=== PATIENT | female | born 1990 | race African-American/Black ===

== ENCOUNTER 2022-01-16 15:06 | Outpatient (CLI) | payer OTHER, SELFPAY | END 2022-01-16 15:07 | disposition home or self-care (01) | LOC: ANHLAB 15:08 | PROVIDERS: Visit Provider Obstetrics & Gynecology | DX: O03.9 Complete or unspecified spontaneous abortion without complication (principal); Z3A.00 Weeks of gestation of pregnancy not specified | CPT/HCPCS: 36415; 84702 ==

== ENCOUNTER 2022-01-18 10:23 | Outpatient (CLI) | payer OTHER, SELFPAY ==
[2022-01-18 11:35] LABS: Beta HCG Quantitative 389.18 mIU/ML
== END 2022-01-18 10:24 | disposition home or self-care (01) ==
PROVIDERS: Visit Provider Obstetrics & Gynecology
DX: O03.9 Complete or unspecified spontaneous abortion without complication (principal); Z3A.00 Weeks of gestation of pregnancy not specified
CPT/HCPCS: 36415; 84702

== ENCOUNTER 2022-04-16 11:16 | Outpatient (CLI) | payer OTHER, SELFPAY | END 2022-04-16 11:17 | disposition home or self-care (01) | LOC: ANHLAB 11:17 | PROVIDERS: Visit Provider Obstetrics & Gynecology | DX: N92.6 Irregular menstruation, unspecified (principal) | CPT/HCPCS: 36415; 84702 ==

== ENCOUNTER 2022-04-18 10:29 | Outpatient (CLI) | payer OTHER, SELFPAY | END 2022-04-18 10:30 | disposition home or self-care (01) | PROVIDERS: Visit Provider Obstetrics & Gynecology | DX: N92.6 Irregular menstruation, unspecified (principal) | CPT/HCPCS: 36415; 84702 ==

== ENCOUNTER 2022-05-17 11:05 | Outpatient (CLI) | payer OTHER, SELFPAY ==
[2022-05-17 11:40] LABS: Basophils Absolute Auto 0.1 K/mm3 (0.0-0.1); Basophils Percent Auto 0.5 % (0.2-1.2); Eosinophils Absolute Auto 0.1 K/mm3 (0-0.3); Eosinophils Percent Auto 0.5 % (0-4.4); Hematocrit 33.5 % (37.0-47.0); Hemoglobin 10.8 g/dL (12.0-15.0); Immature Granulocyte Absolute 0.04 K/mm3 (0.00-0.031); Immature Granulocyte Percent A 0.4 % (0-0.5); Lymphocytes Absolute Auto 1.33 K/mm3 (0.9-3.2); Lymphocytes Percent Auto 13.3 % (18.3-44.2); Mean Corpuscular HGB Conc 32.2 g/dl (32-36); Mean Corpuscular Hemoglobin 29.5 pg (26-34); Mean Corpuscular Volume 91.5 fl (80-100); Mean Platelet Volume 11.1 fl (7.4-10.4); Monocytes Absolute Auto 0.6 K/mm3 (0.1-0.6); Neutrophils Absolute Auto 7.9 K/mm3 (1.3-6.7); Neutrophils Percent Auto 79.3 % (45.5-73.1); Platelet Count Result 238 k/mm3 (150-375); Red Blood Count 3.66 M/mm3 (4.2-5.4); Red Cell Distribution Width 12.7 % (11.5-14.5)
[2022-05-17 12:34] LABS: HIV 1/2 Ab P24 Ag Result Negative (Negative)
[2022-05-17 12:58] LABS: Hepatitis B Surface Antigen Negative (Negative); Rubella IgG Antibody 22.5 IU/ML
[2022-05-20 12:13] LABS: Rapid Plasma Reagin Non-Reactive (NonReactive)
[2022-05-30 20:23] LABS: SMA 2.0 RISK VARIANT NOT DETECTED
[2022-05-31 13:55] LABS: SMA Results Received Yes
== END 2022-05-17 11:06 | disposition home or self-care (01) ==
LOC: ANHLAB 11:07
PROVIDERS: Visit Provider Student in an Organized Health Care Education/Training Program
DX: N94.89 Other specified conditions associated with female genital organs and menstrual cycle (principal)
CPT/HCPCS: 36415; 81329; 84702; 85025; 86592; 86644; 86703; 86747; 86762; 86787; 86850; 87340; G0432

== ENCOUNTER → 2022-05-20 11:30 | Outpatient (CLI) | payer OTHER, SELFPAY ==
--- NOTE | ~2022-05-20 | US_ITS ---
EXAMINATION: US OB <= 14 weeks fetus DATE: 05/20/2022 11:51 INDICATION: Establish dating of . Encounter for supervision of normal patency during . TECHNIQUE: Real-time pelvic ultrasound utilizing both a transvaginal and transabdominal probe was pe rformed. The interpreting radiologist was not present for the study. COMPARISON: None. FINDINGS: The uterus measures 11.2 x 7.9 x 7.8 cm. There is an intrauterine gestational sac. A yolk sac and fe hodan pole are identified. The crown rump length measures 2.7 cm, which correlates with an estimated ge stational age of 9 weeks and 3 days. heart motion is identified measuring 165 beats per minute (bpm) by M-mode Doppler. The right ovary is not visualized The left ovary measures 2.9 x 1.6 x 3.4 cm. There is no free fluid in the pelvis. IMPRESSION: 1. Single living fetus with heart rate of 165 bpm. 2. Gestational age by ultrasound of 9 weeks 3 day(s) +/- 6 day(s) with ultrasound estimated date of delivery (ANA) of 12/30/2022. Reviewed, dictated and finalized at location A. AGING INSPECTOR IMPRESSION: 1. Single living fetus with heart rate of 165 bpm. 2. Gestational age by ultrasound of 9 weeks 3 day(s) +/- 6 day(s) with ultraso und estimated date of delivery (ANA) of 12/30/2022.
== END ==
PROVIDERS: PCP Obstetrics & Gynecology; Visit Provider Obstetrics & Gynecology
DX: Z34.91 Encounter for supervision of normal pregnancy, unspecified, first trimester (principal); Z3A.09 9 weeks gestation of pregnancy
CPT/HCPCS: 76801

== ENCOUNTER 2022-07-11 11:28 | Outpatient (CLI) | payer OTHER, SELFPAY | END 2022-07-11 11:29 | disposition home or self-care (01) | LOC: ANHLAB 11:31 | PROVIDERS: PCP Obstetrics & Gynecology; Visit Provider Student in an Organized Health Care Education/Training Program | DX: N91.2 Amenorrhea, unspecified (principal); N94.89 Other specified conditions associated with female genital organs and menstrual cycle | CPT/HCPCS: 36415; 86900; 86901 ==

== ENCOUNTER 2022-08-05 10:20 | Outpatient (CLI) | payer OTHER, SELFPAY ==
--- NOTE | ~2022-08-05 | US_ITS ---
EXAMINATION: US OB /maternal detail DATE: 08/05/2022 11:42 INDICATION: Second trimester anatomic survey TECHNIQUE: Multiple obstetric sonographic images performed. FINDINGS: There is a single living fetus in breech presentation. The placenta is anterior and low-lying with c audal margin 4.0 cm from the internal cervical os. Cervical length measures approximately 6 cm which is normal. Amniotic fluid volume is subjectively normal. heart rate of 163 beats per minute. The following anatomy was identified as normal: Ventricles, choroid plexus, falx and cava septum pellucidum Cerebellum and cisterna magna Nuchal fold Spine Heart Diaphragm Stomach Kidneys Bladder 3 vessel cord and cord insertion Bilateral upper and lower extremities including hands and feet The following biometric data were obtained: BPD: 4.9 cm -> 20 weeks 5 days Head circumference: 17.9 cm -> 20 weeks 2 days Abdominal circumference: 15.6 cm -> 20 weeks 5 days Femur length: 3.3 cm -> 20 weeks 2 days These measurements are concordant. Head circumference to abdominal circumference ratio: 1.15 (normal range 1.07-1.25). Estimated weight: 360 g (+/-) 54 g. or 13 oz. (+/-) 2 oz. IMPRESSION: 1. Single living fetus with breech presentation with heart rate of 163 bpm. 2. Biometric data concordant within 1 day of the estimated gestational age by ultrasound of 20 weeks 3 day(s) based upon prior ultrasound performed on 05/20/2022 and within 2 days of the estimated gesta tional age of 20 weeks and 6 days based upon TECHNICIAN BIOLOGICAL HEALTH in office evaluation as reported by the patient d id estimated weight is 28th percentile by Hadlock criteria when 606/23 as provided by the [facility] nt is used as the ANA. Please correlate with clinical information or earlier ultrasounds for most acc urate ANA. 3. Normal anatomic survey. Reviewed, dictated and finalized at location B. TENDER PAPER MACHINE IMPRESSION: 1. Single living fetus with breech presentation with heart rate of 163 b pm. 2. Biometric data concordant within 1 day of the estimated gestational age by u ltrasound of 20 weeks 3 day(s) based upon prior ultrasound performed on 022 and within 2 days of the estimated gestational age of 20 weeks and 6 days b ased upon TECHNICIAN BIOLOGICAL HEALTH in office evaluation as reported by the patient did estimated weight is 28th percentile by Hadlock criteria when 606/23 as provided by the patient is used as the ANA. Please correlate with clinical information or e arlier ultrasounds for most accurate ANA. 3. Normal anatomic survey.
== END 2022-08-05 10:21 | disposition home or self-care (01) ==
PROVIDERS: Visit Provider Student in an Organized Health Care Education/Training Program
DX: Z34.90 Encounter for supervision of normal pregnancy, unspecified, unspecified trimester (principal); Z3A.00 Weeks of gestation of pregnancy not specified
CPT/HCPCS: 76805

== ENCOUNTER 2022-09-01 16:49 | Outpatient (CLI) | payer OTHER, SELFPAY ==
[2022-09-01 17:03] VITALS: BP 106/69; PULSE 94
[2022-09-01 17:29] LABS: Appearance Urine Clear (Clear); Bilirubin Urine Negative (Negative); Blood Urine Negative (Negative); Color Urine Yellow (Yellow); Glucose Urine UA Negative (Negative); Ketones Urine Negative (Negative); Leukocyte Esterase Ur Negative LEU/UL (Negative); Nitrate Urine Negative (Negative); Protein Urine Negative (Negative); Urobilinogen Urine 0.2 mg/dL (<2.0)
[2022-09-01 17:37] LABS: Mucus Urine Rare /lpf; RBC Urine 0-2 /hpf (0-2); Squamous Epithelial Cell Urine Rare /hpf (Few); WBC Urine 0-3 /hpf
[2022-09-01 17:46] LABS: Add Urine Microscopic? NO
--- NOTE | 2022-09-01 17:50 | PC.NURSE ---
1741: RN called NICOL Hector to report pt's complaints of contractions every 10-15 min, FHT of Category 1, and no contraction noted per toco or patient. Rn notified CNM that patient has no major health history, no problems with this , and no history of labor. RN also notified CNM of patient's urine culture results. Order to discharge patient home.
--- NOTE | 2022-09-02 09:10 | P.PNOB_ITS ---
OB - Triage/Final Diagnosis Visit Information Reason for evaluation: threatened labor Comments/Additional reasons for admission: I have assessed the risk for this patient, Vaishali Us, and determined that she would benefit from observation care. Evaluation Laboratory results: Laboratory Tests 09/01/22 17:16 Urine Color Yellow Urine Appearance Clear Urine pH 7.0 Ur Specific [place] 1.010 Urine Protein Negative Urine Glucose (UA) Negative Urine Ketones Negative Ur Blood (Man) Negative Urine Nitrate Negative Urine Bilirubin Negative Urine Urobilinogen 0.2 Leukocyte Esterase Rfl Negative Urine RBC 0-2 Urine WBC 0-3 Ur Squamous Epith Cells Rare Urine Mucus Rare Vital signs: Vital Signs - 24 hr 09/01/22 17:03 Pulse Rate 94 Blood Pressure 106/69
== END 2022-09-01 17:50 | disposition home or self-care (01) ==
LOC: ANHOBOP 16:54 → ANHOBPP 16:56
PROVIDERS: Advanced Practice Midwife; Visit Provider Student in an Organized Health Care Education/Training Program
DX: O20.0 Threatened abortion (principal); Z3A.00 Weeks of gestation of pregnancy not specified
CPT/HCPCS: 81003; 99199

== ENCOUNTER 2022-09-26 12:17 | Outpatient (CLI) | payer OTHER, SELFPAY ==
[2022-09-26 14:45] LABS: Hematocrit 31.3 % (37.0-47.0); Hemoglobin 9.9 g/dL (12.0-15.0); Mean Corpuscular HGB Conc 31.6 g/dl (32-36); Mean Corpuscular Hemoglobin 29.3 pg (26-34); Mean Corpuscular Volume 92.6 fl (80-100); Mean Platelet Volume 11.8 fl (7.4-10.4); Platelet Count Result 219 k/mm3 (150-375); Red Blood Count 3.38 M/mm3 (4.2-5.4); Red Cell Distribution Width 13.5 % (11.5-14.5); White Blood Count 11.8 K/mm3 (4.5-10.0)
[2022-09-26 14:54] LABS: Glucose 1 Hour PP 50gm Dose 106 mg/dL
[2022-09-26 15:35] LABS: HIV 1/2 Ab P24 Ag Result Negative (Negative)
== END 2022-09-26 12:18 | disposition home or self-care (01) ==
LOC: ANHLAB 12:19
PROVIDERS: Visit Provider Student in an Organized Health Care Education/Training Program
DX: Z34.90 Encounter for supervision of normal pregnancy, unspecified, unspecified trimester (principal); Z3A.00 Weeks of gestation of pregnancy not specified
CPT/HCPCS: 36415; 82947; 85027; 86703; G0432

== ENCOUNTER 2022-09-28 17:33 | Observation (INO) | payer OTHER, SELFPAY ==
[2022-09-28] VITALS (29 sets, daily range): BP systolic 100–111; BP diastolic 62–68; PULSE 88–112; O2SAT 97–100; BMI 20.7
[2022-09-28 18:38] LABS: Basophils Percent Auto 0.3 % (0.2-1.2); Eosinophils Absolute Auto 0.1 K/mm3 (0-0.3); Eosinophils Percent Auto 0.8 % (0-4.4); Hematocrit 29.3 % (37.0-47.0); Hemoglobin 9.5 g/dL (12.0-15.0); Immature Granulocyte Absolute 0.21 K/mm3 (0.00-0.031); Immature Granulocyte Percent A 1.8 % (0-0.5); Lymphocytes Absolute Auto 1.96 K/mm3 (0.9-3.2); Lymphocytes Percent Auto 16.8 % (18.3-44.2); Mean Corpuscular HGB Conc 32.4 g/dl (32-36); Mean Corpuscular Hemoglobin 29.7 pg (26-34); Mean Corpuscular Volume 91.6 fl (80-100); Mean Platelet Volume 11.2 fl (7.4-10.4); Monocytes Absolute Auto 0.9 K/mm3 (0.1-0.6); Monocytes Percent Auto 7.4 % (2.6-8.5); Neutrophils Absolute Auto 8.5 K/mm3 (1.3-6.7); Neutrophils Percent Auto 72.9 % (45.5-73.1); Platelet Count Result 215 k/mm3 (150-375); Red Cell Distribution Width 13.4 % (11.5-14.5); White Blood Count 11.7 K/mm3 (4.5-10.0)
--- NOTE | 2022-09-28 20:12 | PC.NURSE ---
1924 BUDDY CALLED ABOUT PT ARRIVAL AND CURRENT PT STATUS. LAB REVIEWED. MATERNAL AND STATUS REPORTED. DISCHARGE ORDERS RECEIVED.
--- NOTE | 2022-09-30 19:55 | P.PNOB_ITS ---
OB - Triage/Final Diagnosis Visit Information Reason for evaluation: other (Dizziness. ) Comments/Additional reasons for admission: I have assessed the risk for this patient, Vaishali Us, and determined that she would benefit from observation care. Pt had improvement of symptoms. Plan to increase PO iron and fluid intake. To f/up with primary OBGYN. Evaluation Laboratory results: Laboratory Tests 09/28/22 18:31 WBC 11.7 H RBC 3.20 L Hgb 9.5 L Hct 29.3 L MCV 91.6 MCH 29.7 MCHC 32.4 RDW 13.4 Plt Count 215 MPV 11.2 H Immature Gran % (Auto) 1.8 H Neut % (Auto) 72.9 Lymph % (Auto) 16.8 L [place] % (Auto) 7.4 Eos % (Auto) 0.8 Baso % (Auto) 0.3 Lymph # (Auto) 1.96 [place] # (Auto) 0.9 H Eos # (Auto) 0.1 Baso # (Auto) 0.0 Abs Immat Gran (auto) 0.21 H Absolute Neuts (auto) 8.5 H Absolute Nucleated RBC 0.0 Nucleated RBC % 0.0
== END 2022-09-28 19:41 | disposition home or self-care (01) ==
LOC: ANHOBOP 17:47 → ANHOBPP 17:58
PROVIDERS: Admitting Provider Advanced Practice Midwife; Visit Provider Advanced Practice Midwife
DX: O26.893 Other specified pregnancy related conditions, third trimester (principal); R42 Dizziness and giddiness; Z3A.28 28 weeks gestation of pregnancy
CPT/HCPCS: 36415; 59025; 85025; G0378; G0379

== ENCOUNTER 2022-11-29 13:16 | Observation (INO) | payer OTHER, SELFPAY ==
[2022-11-29] VITALS (15 sets, daily range): BP systolic 99–106; BP diastolic 60–68; PULSE 87–167; RESP 12; O2SAT 93–100; BMI 24.8
[2022-11-29 14:34] LABS: Appearance Urine Clear (Clear); Bacteria Urine None Seen /hpf; Bilirubin Urine Negative (Negative); Blood Urine Negative (Negative); Color Urine Yellow (Yellow); Glucose Urine UA Negative (Negative); Ketones Urine Negative (Negative); Leukocyte Esterase Ur Trace LEU/UL (Negative); Nitrate Urine Negative (Negative); Non Pathogenic Casts 0-2; Protein Urine Negative (Negative); RBC Urine 0-2 /hpf (0-2); Squamous Epithelial Cell Urine None seen /hpf (Few); WBC Urine 0-5 /hpf; pH Urine 6.5 (5.0-9.0)
[2022-11-29 14:35] LABS: Add Urine Microscopic? YES
--- NOTE | 2022-11-29 14:43 | PC.NURSE ---
1443: RN phoned OB Dr. Strange. RN reported to OB maternal status, maternal complaint of vaginal pressure, contraction pattern, FHT, and urine results. Orders to discharge patient home with orders to keep her next appointment with OB.
--- NOTE | 2022-11-29 15:03 | OBADM ---
This patient, Vaishali Us, admitted to the OB room Labor/Delivery/Recovery 106 for observation. Patient/family oriented to hospital policies and general routines including ID bracelet, bed and alarms, visiting hours, pain management, procedures, bathroom and other care routines, personal items, smoking policy, room service/diet, and visiting hours. Patient/Family are encouraged to report perceived risks to care and to ask questions if they do not understand what they are told or what they should do.
--- NOTE | 2022-12-03 08:08 | PM.OBTRLD ---
OB - Triage/Final Diagnosis Visit Information Comments/Additional reasons for admission: I have assessed the risk for this patient, Vaishali Us, and determined that she would benefit from observation care. Evaluation Laboratory results: Laboratory Tests 11/29/22 14:26 Urine Color Yellow Urine Appearance Clear Urine pH 6.5 Ur Specific [place] 1.020 Urine Protein Negative Urine Glucose (UA) Negative Urine Ketones Negative Ur Blood (Man) Negative Urine Nitrate Negative Urine Bilirubin Negative Urine Urobilinogen 1.0 Leukocyte Esterase Rfl Trace H Urine RBC 0-2 Urine WBC 0-5 Ur Squamous Epith Cells None seen Urine Bacteria None seen Urine Casts 0-2 Final Diagnosis (1) False labor: Code(s): O47.9 - False labor, unspecified Status: Acute
== END 2022-11-29 15:28 | disposition home or self-care (01) ==
LOC: ANHLDR 13:43
PROVIDERS: Admitting Provider Obstetrics & Gynecology; Visit Provider Obstetrics & Gynecology
DX: O47.9 False labor, unspecified (principal); Z3A.00 Weeks of gestation of pregnancy not specified
CPT/HCPCS: 81001; G0378; G0379

== ENCOUNTER 2022-12-17 04:57 | Inpatient (IN) | payer OTHER, SELFPAY ==
[2022-12-17] VITALS (43 sets, daily range): BP systolic 90–115; BP diastolic 46–76; PULSE 81–106; RESP 16–18; TEMP 36.2–36.6; O2SAT 100; BMI 25.1
--- NOTE | 2022-12-17 05:18 | LDADM ---
This patient, Vaishali Us, was admitted to Labor/Delivery/Recovery 104 on 12/17/22 at 04:57. Plans for labor, pain management and were discussed with patient. Patient/family oriented to hospital policies and general routines including ID bracelet, bed and alarms, visiting hours, pain management, procedures, bathroom and other care routines, personal items, smoking policy, room service/diet and guest tray routines, security routines, and visiting hours. Patient/Family are encouraged to report perceived risks to care and to ask questions if they do not understand what they are told or what they should do. See OBIX for further documentation.
[2022-12-17 06:11] LABS: Basophils Percent Auto 0.2 % (0.2-1.2); Eosinophils Absolute Auto 0.1 K/mm3 (0-0.3); Eosinophils Percent Auto 0.5 % (0-4.4); Hematocrit 30.7 % (37.0-47.0); Hemoglobin 9.6 g/dL (12.0-15.0); Immature Granulocyte Absolute 0.15 K/mm3 (0.00-0.031); Immature Granulocyte Percent A 1.2 % (0-0.5); Lymphocytes Absolute Auto 1.75 K/mm3 (0.9-3.2); Lymphocytes Percent Auto 14.5 % (18.3-44.2); Mean Corpuscular HGB Conc 31.3 g/dl (32-36); Mean Corpuscular Volume 86.2 fl (80-100); Mean Platelet Volume 11.2 fl (7.4-10.4); Monocytes Absolute Auto 0.8 K/mm3 (0.1-0.6); Monocytes Percent Auto 6.4 % (2.6-8.5); Neutrophils Absolute Auto 9.3 K/mm3 (1.3-6.7); Neutrophils Percent Auto 77.2 % (45.5-73.1); Platelet Count Result 254 k/mm3 (150-375); Red Blood Count 3.56 M/mm3 (4.2-5.4); Red Cell Distribution Width 15.1 % (11.5-14.5); White Blood Count 12.1 K/mm3 (4.5-10.0)
[2022-12-17] MEDS: LACTATED RINGERS 1,000 ML 125 ML IV CONT (06:19)
[2022-12-17] MEDS: OXYTOCIN 30 UNITS/NS 500 ML 30 UNITS/500 ML BAG IV CONT (06:20)
--- NOTE | 2022-12-17 07:11 | PM.IMHP ---
H&P: HPI History of Present Illness Date/Time: 12/17/22 07:11 Chief Complaint: elective IOL Narrative: Vaishali is a 32yo @ 39.4wks who presents for elective IOL. She reports good movements. No VB or LOF. She has been having contractions. Her is complicated by: - Anemia; hgb 9.6 PMFSH Past Medical History Medical History Suppression of menses Vaginal discharge Venereal disease Surgical History Surgical History History of colposcopy (~02/02/14) Lgsil+hpv History of gynecological procedure mirena iud insertion - 11/14/2011 mirena iud removal 07/20/2014 Mirena iud insertion 10/21/2016 Mirena iud removal 08/25/2017 Mirena Iud insertion 09/28/2018 Social History Social History Smoking status: Never smoker Alcohol intake: never Substance use: never Lack of Transportation: No Lack of Food: Never True Current Housing: I Have Housing Concerned About Future Housing: No Difficulty Paying Gas/Electric Bills: No Difficulty Paying for Meds: No Currently Unemployed: No Education: High School Diploma/GED Difficulty w/ Childcare or Family Care: No Occupation/Education: occupation 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 Spiritual care concerns: No Meds Home Medications and Allergies Home Medications Medication Instructions Recorded Confirmed Type ferrous sulfate 325 mg (65 mg 325 mg PO DAILY #30 tabs 09/27/22 12/17/22 Rx iron) tablet (FeroSul) Allergies Allergy/AdvReac Type Severity Reaction Status Date / Time No Known Allergies Allergy Unknown Verified 12/11/22 11:22 Vital Signs Vital Signs - 24 hr 12/17/22 05:18 12/17/22 06:22 12/17/22 06:31 Temperature Pulse Rate 89 85 Blood Pressure 102/65 107/66 Oxygen Delivery Room Air 12/17/22 06:46 12/17/22 06:29 12/17/22 07:01 Temperature 97.2 F L Pulse Rate 87 84 Blood Pressure 105/69 106/69 Oxygen Delivery Exam Const: General: cooperative, healthy appearing, comfortable and no acute distress Resp: Effort & Inspection: normal respiratory effort Cardio: Rate: regular rate GI: GI Palp: No abdominal tenderness : Other: FHT's: 150's/ mod joe/ + accels/ no decels - cat 1 toco: ctx's q2-3min Cervix: 4/50/-4 Membranes: intact Presentation: cephalic Skin: General skin exam: normal color Neuro: General: patient oriented x3 Extrem: General: normal to inspection Psych: Appearance: grossly normal Affect: normal affect Attitude: cooperative H&P: Results Labs Labs: Short CBC 12/17/22 Range/Units 05:27 WBC 12.1 H (4.5-10.0) K/mm3 Hgb 9.6 L (12.0-15.0) g/dL Hct 30.7 L (37.0-47.0) % Plt Count 254 (150-375) k/mm3 Assessment and Plan Assessment and plan (1) Encounter for elective induction of labor: Code(s): Z34.90 - Encounter for supervision of normal , unspecified, unspecified trimester Status: Acute Plan - Pitocin per protocol - Will plan for AROM, when head is at a lower station - Continuous monitoring; currently reassuring - GBS negative - Anesthesia consult PRN pain
--- NOTE | 2022-12-17 07:24 | WPDHPUPDATE1 ---
History and Physical Update Update Date/Time: 12/17/22 07:24 History and Physical has been reviewed, including an updated exam of the patient. There are NO changes in the patient's condition. Risks, benefits, and alternatives have been discussed and questions answered. Patient agrees to proceed with procedure.
--- NOTE | 2022-12-17 09:36 | WPDANESEPPF ---
Anes - Initial Pre Proc Eval Procedure: LAbor epidural Date/Time: 12/17/22 09:36 Surgeon: Brooklyn Strange MD Pre Op Diagnosis: Abdominal pain with contractions Pre Op Diagnosis: IOL Patient Data Age: 32 Gender: F Height: 1.73 m Weight: 75 kg Last Vital Signs Temp 97.2 F L 12/17/22 06:29 Pulse 92 12/17/22 09:31 BP 91/56 L 12/17/22 09:31 O2 Del Method Room Air 12/17/22 05:18 Allergies Allergy/AdvReac Type Severity Reaction Status Date / Time No Known Allergies Allergy Unknown Verified 12/11/22 11:22 Home Medications Medication Instructions Recorded Confirmed Type ferrous sulfate 325 mg (65 mg 325 mg PO DAILY #30 tabs 09/27/22 12/17/22 Rx iron) tablet (FeroSul) Laboratory Tests 12/17/22 05:27 WBC 12.1 H K/mm3 (4.5-10.0) RBC 3.56 L M/mm3 (4.2-5.4) Hgb 9.6 L g/dL (12.0-15.0) Hct 30.7 L % (37.0-47.0) MCV 86.2 fl (80-100) MCH 27.0 pg (26-34) MCHC 31.3 L g/dl (32-36) RDW 15.1 H % (11.5-14.5) Plt Count 254 k/mm3 (150-375) MPV 11.2 H fl (7.4-10.4) Immature Gran % (Auto) 1.2 H % (0-0.5) Neut % (Auto) 77.2 H % (45.5-73.1) Lymph % (Auto) 14.5 L % (18.3-44.2) [place] % (Auto) 6.4 % (2.6-8.5) Eos % (Auto) 0.5 % (0-4.4) Baso % (Auto) 0.2 % (0.2-1.2) Lymph # (Auto) 1.75 K/mm3 (0.9-3.2) [place] # (Auto) 0.8 H K/mm3 (0.1-0.6) Eos # (Auto) 0.1 K/mm3 (0-0.3) Baso # (Auto) 0.0 K/mm3 (0.0-0.1) Abs Immat Gran (auto) 0.15 H K/mm3 (0.00-0.031) Absolute Neuts (auto) 9.3 H K/mm3 (1.3-6.7) Absolute Nucleated RBC 0.0 K/mm3 (0.0-0.012) Nucleated RBC % 0.0 % (0.0-0.2) RPR Pending Blood Type B Positive Antibody Screen Negative : gestational age HCG: positive Patient hx anesthesia problems: none Family hx anesthesia problems: none Results Review: All pre-operative results and documents have been reviewed as part of the pre-operative evaluation. [facility] Past Medical History Medical History Overweight (BMI 25.0-29.9) STD (female) Suppression of menses Vaginal discharge Venereal disease Surgical History Surgical History History of colposcopy (~02/02/14) Lgsil+hpv History of gynecological procedure mirena iud insertion - 11/14/2011 mirena iud removal 07/20/2014 Mirena iud insertion 10/21/2016 Mirena iud removal 08/25/2017 Mirena Iud insertion 09/28/2018 Social History Social History Smoking status: Never smoker Alcohol intake: never Substance use: never Lack of Transportation: No Lack of Food: Never True Current Housing: I Have Housing Concerned About Future Housing: No Difficulty Paying Gas/Electric Bills: No Difficulty Paying for Meds: No Currently Unemployed: No Education: High School Diploma/GED Difficulty w/ Childcare or Family Care: No Occupation/Education: occupation 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 Informed Consent: The patient's anesthetic plan and its attendant risks and benefits were discussed with the patient/family/POA. Questions were solicited and answers provided to the satisfaction of the patient/family/POA.
[2022-12-17] MEDS: fentaNYL CITRATE INJ (*CRX) 100 MCG/2 ML VIAL 50 MCG IV PUSH ×3 (10:36→13:04)
[2022-12-17 11:29] LABS: Rapid Plasma Reagin Non-Reactive (NonReactive)
--- NOTE | 2022-12-17 11:29 | PM.OBPNLAB ---
Pain Control Date/time seen: 12/17/22 11:29 Pain control: narcotic analgesia Pelvic Exam Dilation (cm): 6 Effacement (%): 80 station: -2 Amniotic membrane status: Ruptured (AROM, clear 1125) Contractions Monitor mode: External Contraction frequency: 3 (-4) Contraction pattern: Regular Status status: Category l Assessment and Plan Pitocin rate (mU/min): 6 Plan: continuous present management
--- NOTE | 2022-12-17 14:20 | PM.OBPRVD ---
OB - Delivery Note Procedure Delivery date: 12/17/22 Events: Elective Induction of Labor Induction method: Per Pitocin Protocol Delivery augmentation: Rupture of Membranes Delivery monitor: External FHT and External Uterine Route of delivery: Laceration Description: None Quantitative Blood Loss (ml): 50 Anesthesia type: None Disposition: Floor [place] Baby Date of : 12/17/22 Time of : 13:48 Weeks of gestation at delivery: 39 (.4) Infant gender: Male presentation: vertex Placenta delivery description: Expressed Cord Vessel Description: 3 Vessels, Nuchal Cord and Tight score one minute: 8 score five minutes: 9 Narrative: Vaishali endorsed significant pressure and was found to be 9 cm, but she was unable to stop pushing as she did not have an epidural. She delivered the infant with the nurses present. I was informed that a tight nuchal was noted and delivered through, however the umbilical cord was noted to be avulsed and was clamped by the pediatric nurse. Good strong cry was heard from the infant when I arrived approximally 1 minute after delivery. A segment of the umbilical cord was collected for cord gases. The remaining cord blood was collected for typing. With Pitocin running and gentle downward traction on the cord, the placenta delivered without complications. Gentle bimanual massage was performed with good uterine tone and minimal bleeding. She was examined and no lacerations were noted. Sponge, lap, instrument, needle counts were correct at the end the procedure. Mom and baby were left in the birthing suite in stable condition. [facility] Delivery Billing Delivery Delivery: Delivery Charge
[2022-12-17] MEDS: OXYTOCIN 30 UNITS/NS 500 ML 30 UNITS/500 ML BAG 125 UNITS IV CONT (14:32)
[2022-12-17] MEDS: ACETAMINOPHEN 325 MG TABLET 650 MG (14:34)
[2022-12-17] MEDS: WITCH HAZEL 40 PADS 1 PAD TOPICAL (16:21)
[2022-12-17] MEDS: BENZOCAINE 20% AER SPR (*SP) 56 GM CAN 1 SPRAY TOPICAL (16:21)
[2022-12-17] MEDS: POLYSACCHARIDE IRON COMPLEX 150 MG CAPSULE PO (17:48)
[2022-12-17] MEDS: IBUPROFEN 600 MG TABLET PO (17:48)
[2022-12-17] MEDS: DOCUSATE SODIUM 100 MG CAPSULE PO (17:49)
[2022-12-17] MEDS: ACETAMINOPHEN 325 MG TABLET 650 MG PO (21:57)
[2022-12-18 05:34] LABS: Hematocrit 29.4 % (37.0-47.0); Hemoglobin 9.1 g/dL (12.0-15.0)
--- NOTE | 2022-12-18 07:20 | P.PNOB_ITS ---
OB - PN: Subj Subjective Date/time seen: 12/18/22 07:20 Narrative: PPD#1 Vaishali reports doing well today. 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 Her pain is controlled. She is tolerating regular diet, voiding, passing gas, and ambulating without issues. She is breast feeding. She would like her son circumcised, but will await repeat H/H and pedi clearance. OB - PN: Obj Data Labs 12/18/22 04:33 Labs: Laboratory Results - last 24 hr 12/17/22 12/18/22 05:27 04:33 Hgb 9.1 L Hct 29.4 L RPR Non-reactive OB - PN A/P Assessment and Plan (1) Normal vaginal delivery: Code(s): O80 - Encounter for full-term uncomplicated delivery Status: Acute Plan day: 1 Plan: routine care and discharge home (tomorrow) Comments: - Pelvic rest; take meds as prescribed - ER return precautions: fever, n/v/abd pain, bleeding, HTN Time Spent With Patient Time: Total time spent is greater than 50% in coordination of care (as documented) at patient's floor/unit and/or counseling patient: Review of Systems Constitutional: Constitutional: Denies chills, Denies fever(s) and Denies headache(s) Eyes: Eyes: Denies change in vision ENT: Denies dizziness and Denies headache(s) Cardiovascular: Cardiovascular: Denies chest pain, Denies palpitations and Denies dyspnea Respiratory: Respiratory: Denies cough and Denies dyspnea Gastrointestinal: Gastrointestinal: Denies nausea and Denies vomiting Neurologic: Denies dizziness and Denies headache(s) Endocrine: Endocrine: Denies palpitations Exam Const: General: cooperative, comfortable and no acute distress Orientation/consciousness: patient oriented x3 Resp: Effort & Inspection: normal respiratory effort Auscultation: clear to auscultation bilaterally Cardio: Rate: regular rate GI: Inspection: non-distended GI Palp: No abdominal tenderness and Yes Soft to palpation Auscultation: normal bowel sounds : Other: fundus firm Skin: General skin exam: normal color Neuro: General: patient oriented x3 Extrem: General: normal to inspection Psych: Appearance: grossly normal Affect: normal affect Attitude: cooperative
[2022-12-18 07:45] VITALS: PULSE 82; RESP 19; O2SAT 98
[2022-12-18] MEDS: IBUPROFEN SUSPENSION 200 MG/10 ML UDC 600 MG PO ×2 (07:45→17:45)
[2022-12-18] MEDS: FERROUS SULFATE LIQUID 325 MG/7.4 ML ELIXIR PO (07:45)
[2022-12-18] MEDS: MULTIVIT/MIN/PREN/FOL AC/IRON TABLET 1 TAB PO (07:45)
[2022-12-18 08:16] VITALS: BP 102/60; PULSE 82; RESP 19; TEMP 36.8; O2SAT 98
[2022-12-18] MEDS: WITCH HAZEL 40 PADS 1 PAD TOPICAL (10:00)
[2022-12-18 11:55] VITALS: BP 100/71; PULSE 95; RESP 18; TEMP 36.8; O2SAT 100
[2022-12-18] MEDS: ACETAMINOPHEN 325 MG TABLET 650 MG PO ×2 (12:00→20:41)
--- NOTE | 2022-12-18 13:01 | PC.NURSE ---
[id number] Introductions were made, then consulted with patient to assess needs related to . Mother led the conversation with her?plans to feed?her , history and the?experience so far going well with a good latch and no pain. Resources provided for inpatient and outpatient services with the feeding sheet and mom/baby guide. Mother voiced understanding of information and will call if there is a request for assistance.
[2022-12-18 16:35] VITALS: BP 103/62; PULSE 79; RESP 18; TEMP 36.6; O2SAT 100
[2022-12-18] MEDS: DOCUSATE SODIUM 100 MG CAPSULE PO (17:45)
[2022-12-18 20:00] VITALS: BP 111/65; PULSE 80; RESP 18; TEMP 36.9; O2SAT 100
[2022-12-19] MEDS: DOCUSATE SODIUM 100 MG CAPSULE PO (09:01)
[2022-12-19] MEDS: IBUPROFEN SUSPENSION 200 MG/10 ML UDC 600 MG PO (09:02)
[2022-12-19] MEDS: FERROUS SULFATE LIQUID 325 MG/7.4 ML ELIXIR PO (09:02)
[2022-12-19] MEDS: TETANUS,DIPHTHERIA,AC PERTUSSIS ADULT (0.5 ML) BOOSTRIX IM (09:03)
[2022-12-19 09:10] VITALS: BP 106/65; PULSE 72; RESP 18; TEMP 36.6; O2SAT 100
--- NOTE | 2022-12-19 10:40 | PM.OBDSVD ---
DS: Admitting Diagnosis Discharge Date 12/19/2022 Admitting Diagnosis DS: Discharge Diagnosis Discharge Diagnosis (1) , delivered: Code(s): O80 - Encounter for full-term uncomplicated delivery Status: Acute OB - DS: Summary OB Procedures : None OB Procedures Intrapartum: Spontaneous Vag Delivery OB Procedures: : None Time Spent with Patient Time attestation: Total time spent providing and/or coordinating discharge services: Discharge Plan Discharge Attending physician on discharge: Brooklyn Strange Discharging Clinician: Brooklyn Strange Anticipated Discharge Date/Time: 12/19/22 15:00 Patient Disposition: Home, Self-Care Activity: may shower and pelvic rest Diet: regular Patient Instructions: Antibiotic Form Stand Alone Forms: General Discharge Information Follow-up/Referrals: Brooklyn Strange MD [Physician] - 4 Weeks Discharge Medications: New acetaminophen [Mapap (acetaminophen)] 325 mg Tablet 650 mg PO Q6H PRN (Reason: Mild Pain (1-3) Or Headache) Qty: 60 0RF docusate sodium 100 mg Capsule 100 mg PO BID PRN (Reason: Constipation) Qty: 120 1RF ibuprofen 100 mg/5 mL Suspension 600 mg PO Q6H PRN (Reason: Pain Rated 4-6) 10 Days Qty: 1200 0RF Continued ferrous sulfate [FeroSul] 325 mg (65 mg iron) tablet 325 mg PO DAILY Qty: 90 3RF Date of admission: 12/17/22 04:57 Primary Care Provider: UNKNOWN,DOCTOR Admitting Provider: Brooklyn Strange Attending physician on admission: Brooklyn Strange Condition: Stable
--- NOTE | 2022-12-19 10:45 | PC.NURSE ---
Patient viewed the discharge video Mother & Baby Care, The First Two Weeks . Patient was given the opportunity and encouraged to ask questions. Patient verbalized understanding of information shared and has been given the mother/baby guide for home reference.
[2022-12-21 10:18] VITALS: BP 100/59; PULSE 79; RESP 18; TEMP 36.8; O2SAT 100
== END 2022-12-19 11:25 | disposition home or self-care (01) | DRG 560 ==
LOC: ANHOB2 12-19 10:48 → ANHLDR 12-20 09:05 → ANHOB2 12-20 09:05
PROVIDERS: Admitting Provider Obstetrics & Gynecology; Visit Provider Obstetrics & Gynecology
DX: O69.81X0 Labor and delivery complicated by cord around neck, without compression, not applicable or unspecified (principal); Z37.0 Single live birth; Z3A.39 39 weeks gestation of pregnancy
CPT/HCPCS: 36415; 85014; 85018; 85025; 86592; 86850; 86900; 86901; 90715; A9270; J2590; J3010; J7120